=== PATIENT | male | born 1965 | race Caucasian/White ===

== ENCOUNTER → 2017-04-15 | Outpatient (REF) | LOC: LAB 15:02 | DX: I10 Essential (primary) hypertension (principal) ==

== ENCOUNTER 2017-08-05 10:37 | Emergency (ER) | payer SELFPAY ==
[2017-08-05] MEDS ORDERED: LISINOPRIL20 MG PO (10:49)
[2017-08-05] MEDS ORDERED: MUCINEX 60600 MG/TA1 (10:49)
[2017-08-05 11:28] LABS: MEAN CELL VOLUME 90 fl (78-100); MEAN CORPUSCULAR HEMOGLOBIN 31 pg (27-31); MEAN CORPUSCULAR HGB CONC 34 g/dL (33-37); MEAN PLATELET VOLUME 10.3 fl (7.4-10.4); PLATELET COUNT 268 K/mm3 (130-400); RED BLOOD COUNT 4.56 M/mm3 (4.20-5.60); RED CELL DISTRIBUTION WIDTH 12.4 % (11.5-14.5); WHITE BLOOD COUNT 9.9 K/mm3 (4.8-10.8)
[2017-08-05 11:44] LABS: ALBUMIN 4.2 g/dL (3.5-5.0); BUN/CREATININE RATIO 10.1 (6.0-26.0); CALCIUM 9.9 mg/dL (8.4-10.2); POTASSIUM 4.3 mmol/L (3.6-5.0); TOTAL BILIRUBIN 0.7 mg/dL (0.2-1.3); TOTAL PROTEIN 7.5 g/dL (6.3-8.2)
[2017-08-05 11:53] LABS: BAND 1 % (0-10); LYMPHOCYTE 16 % (20-51); MONOCYTE 9 % (3-10); NEUTROPHILS 62 % (42-75)
[2017-08-05 12:09] LABS: D-DIMER 0.58 mg/L FEU (0.15-0.50)
[2017-08-05] MEDS ORDERED: PREDNISONE10 MG PO (13:15)
[2017-08-05] MEDS ORDERED: ALBUTEROL2.5 MG/3 M IH (13:15)
[2017-08-05] MEDS ORDERED: RT ALBUTEROL CC18 GM IH (13:15)
[2017-08-05] MEDS ORDERED: SYMBICORT1 AE3 IH (13:15)
[2017-08-05 13:26] VITALS: BP 142/94
== END 2017-08-05 13:25 | disposition home or self-care (01) ==
LOC: ED 10:37
PROVIDERS: Physician Assistant
DX: J44.1 Chronic obstructive pulmonary disease with (acute) exacerbation (principal); F17.210 Nicotine dependence, cigarettes, uncomplicated
CPT/HCPCS: J2060

== ENCOUNTER 2018-01-26 16:10 | Emergency (ER) | payer SELFPAY ==
[~2018-01-26] VITALS: Ht 190.5 cm; Wt 75.0 kg
[~2018-01-26 16:10] MED LIST: ALBUTEROL2.5 MG/3 M IH; LISINOPRIL20 MG PO; MUCINEX 60600 MG/TA1; PREDNISONE10 MG PO; RT ALBUTEROL CC18 GM IH; SYMBICORT1 AE3 IH
[2018-01-26 17:14] VITALS: BP 115/83
== END 2018-01-26 17:12 | disposition home or self-care (01) ==
LOC: ED 16:10
DX: K40.90 Unilateral inguinal hernia, without obstruction or gangrene, not specified as recurrent (principal); Z79.899 Other long term (current) drug therapy

== ENCOUNTER → 2021-03-28 | Outpatient (CLI) | payer OTHER | LOC: RAD 13:17 → EDSTATUS 14:35 | DX: J44.9 Chronic obstructive pulmonary disease, unspecified (principal); R07.9 Chest pain, unspecified ==

== ENCOUNTER 2024-09-06 17:36 | Emergency (ER) | payer SELFPAY ==
[~2024-09-06] VITALS: Wt 79.5 kg
[~2024-09-06 17:36] MED LIST changes: +FLUTICASONE-SA1 EAC4 IH; +PROAIR HFA0.09 MG/AC IH; +ZESTRIL20 M1 PO
[2024-09-06] MEDS ORDERED: Albuterol/Ipratropium 3 MG-0.5 MG/3 ML Neb Soln IH ONE (18:15)
[2024-09-06] MEDS ORDERED: predniSONE 20 MG TAB PO ONE (18:15)
[2024-09-06 18:35] LABS: BASO # 0.04 K/mm3 (0.02-0.10); EOS # 0.91 K/mm3 (0.04-0.40); EOS % 11.2 % (0.0-4.0); HEMATOCRIT 41.3 % (42.0-52.0); HEMOGLOBIN 13.8 g/dL (13.5-18.0); LYMPH# 2.25 K/mm3 (1.50-4.00); MEAN CELL VOLUME 90 fl (78-100); MEAN CORPUSCULAR HEMOGLOBIN 30 pg (27-31); MEAN CORPUSCULAR HGB CONC 33 g/dL (33-37); MEAN PLATELET VOLUME 9.3 fl (7.4-10.4); NEU # 4.33 K/mm3 (1.40-6.50); PLATELET COUNT 285 K/mm3 (130-400); RED BLOOD COUNT 4.57 M/mm3 (4.20-5.60); RED CELL DISTRIBUTION WIDTH 11.9 % (11.5-14.5); WHITE BLOOD COUNT 8.1 K/mm3 (4.8-10.8)
[2024-09-06 18:40] LABS: ALBUMIN 4.1 g/dL (3.5-5.0)
[2024-09-06 18:42] LABS: CALCIUM 9.7 mg/dL (8.3-10.5)
[2024-09-06 18:43] LABS: TOTAL PROTEIN 7.1 g/dL (6.4-8.3)
[2024-09-06 18:45] LABS: TOTAL BILIRUBIN 0.4 mg/dL (0.2-1.2)
[2024-09-06] MEDS ORDERED: IPRATROPIUM BROM3 M1 IH (18:52)
[2024-09-06] MEDS ORDERED: PREDNISONE20 MG PO (18:52)
[2024-09-06 19:07] VITALS: BP 111/85
== END 2024-09-06 18:06 | disposition home or self-care (01) ==
LOC: ED 17:36
PROVIDERS: Physician Assistant
DX: J44.1 Chronic obstructive pulmonary disease with (acute) exacerbation (principal)
CPT/HCPCS: J7512